=== PATIENT | male | born 1955 | race Caucasian/White ===

== ENCOUNTER 2019-05-10 19:19 | Emergency (ER) | payer BC ==
[2019-05-10] MEDS ORDERED: Albuterol/Ipratropium 3.0-0.5 MG/3 ML Neb Soln NEB ONE (19:43)
--- NOTE | 2019-05-10 19:50 | EDM.PDOC ---
ED HPI GENERAL MEDICAL PROBLEM - General Chief Complaint: Respiratory Problem Stated Complaint: LOW OXYGEN LEVEL Time Seen by Provider: 05/10/19 19:24 Source of Information: Reports: Patient History Limitations: Reports: No Limitations - History of Present Illness INITIAL COMMENTS - FREE TEXT/NARRATIVE: Mr. Marshall is a very pleasant 64-year-old man, working in this area from [place] , with a past medical history significant for coronary artery disease, status post 3 stents over 2 coronary angiograms, along with treated hypertension and dyslipidemia, who states that he developed a cough productive of greenish sputum along with dyspnea both at rest and with exertion, more than a week ago. No recent fever. No recent wheezing. No recent chest pain or palpitations. No prior similar symptoms. The patient went to the walk-in clinic, expecting to get an antibiotic, but his SpO2 was found to be depressed at 75% on room air. He was placed on 3 L of oxygen, which raised his SpO2 to 95%, then brought to the ED. Here in the ED, the patient is found to be mildly hypertensive, but not tachycardic or tachypneic, with an oxygen saturation of 72% on room air with good correlation plethysmograph. He was placed on 2 L of O2 per nasal cannula, raising his SpO2 to around 90%. The patient denies recent chills, nausea, vomiting, constipation, diarrhea, abdominal pain, urinary symptoms, recent weight gain or weight loss, recent bloody bowel movements or black bowel movements, recent joint aches, headaches, or rashes. He denies any recent lower extremity edema or injury. The patient's PCP is in [place]. He did not receive an influenza vaccine this season, and declined an offer to receive one here today. Generalized Pain Score (Numeric/FACES): 4 - Related Data Allergies Allergy/AdvReac Type Severity Reaction Status Date / Time No Known Allergies Allergy Verified 05/10/19 19:38 Home Meds: Home Meds Aspirin [Ecotrin EC] 81 mg PO DAILY 05/10/19 [History] Carvedilol [Coreg] 12.5 mg PO DAILY 05/10/19 [History] Sacubitril/Valsartan [Entresto 24 mg-26 mg Tablet] 1 tab PO ASDIRECTED 05/10/19 [History] atorvaSTATin Calcium [Lipitor] 20 mg PO DAILY 05/10/19 [History] Past Medical History Cardiovascular History: Reports: CAD, High Cholesterol, Hypertension Musculoskeletal History: Reports: Fracture (left ankle) Endocrine/Metabolic History: Reports: Obesity/BMI 30+ - Past Surgical History Cardiovascular Surgical History: Reports: Coronary Artery Stent (x 3), Other ( See Below) (coronary angiogram x 2) Musculoskeletal Surgical History: Reports: ORIF (left ankle, as a child) Social & Family History - Tobacco Use Smoking Status *Q: Current Every Day Smoker Years of Tobacco use: 46 Packs/Tins Daily: 1.5 Packs/Tins Daily Comment: Down from 2.5 ppd - Caffeine Use Caffeine Use: Reports: Coffee - Alcohol Use Alcohol Use History: Yes Alcohol Use Frequency: Socially - Recreational Drug Use Recreational Drug Use: No - Living Situation & Occupation Living situation: Reports: , with Spouse, with Family (Daughter) Occupation: Employed ([employer]) ED ROS GENERAL - Review of Systems Review Of Systems: Comprehensive ROS is negative, except as noted in HPI. ED EXAM, GENERAL - Physical Exam Exam: See Below Exam Limited By: No Limitations General Appearance: Alert, WD/WN, No Apparent Distress (looks perfectly comfortable) Eye Exam: Bilateral Eye: EOMI, Normal Inspection Ears: Normal External Exam, Hearing Grossly Normal Nose: Normal Inspection Throat/Mouth: Normal Inspection, Normal Lips, Normal Voice, No Airway Compromise Head: Atraumatic, Normocephalic Neck: Normal Inspection, Full Range of Motion Respiratory/Chest: No Respiratory Distress, No Accessory Muscle Use, Decreased Breath Sounds (throughout), Wheezing (fine, expiratory, throughout), Prolonged Expiration. No: Crackles, Rhonchi, Stridor Cardiovascular: Normal Peripheral Pulses, Regular Rate, Rhythm, No Gallop, No JVD, No Murmur, No Rub Peripheral Pulses: 4+: Radial (L), Radial (R) GI/Abdominal: Normal Bowel Sounds, Soft, Non-Tender, No Organomegaly, No Distention, No Abnormal Bruit, No Mass (Male) Exam: Deferred Rectal (Males) Exam: Deferred Back Exam: Normal Inspection, Full Range of Motion, NT Extremities: Normal Inspection, Normal Range of Motion, Normal Capillary Refill , Other (Trace pretibial pitting edema to the left leg, 1+ (or so) pretibial pitting edema to the right leg) Neurological: Alert, Oriented, Normal Cognition, No Motor/Sensory Deficits Psychiatric: Normal Affect Skin Exam: Warm, Dry, Intact, Normal Color, No Rash EKG INTERPRETATION EKG Date: 05/10/19 Time: 20:06 Rhythm: NSR Rate (Beats/Min): 80 [place]: Normal P-Wave: Enlarged (LAE) QRS: Normal ST-T: Elevated (Up to 1.5 mm concave in V1 to V3 or V4 with ST depressions in inferior leads. No T-wave inversions.) QT: Normal Comparison: NA - No Prior EKG Course - Vital Signs Last Recorded V/S: Last Vital Signs Temp 36.9 C 05/10/19 19:28 Pulse 89 05/10/19 19:28 Resp 13 05/10/19 19:28 BP 160/96 H 05/10/19 19:28 Pulse Ox 86 L 05/10/19 19:58 - Orders/Labs/Meds Orders: Active Orders 24 hr Category Date Time Status EKG Documentation Completion [RC] STAT Care 05/10/19 19:40 Active RT Aerosol Therapy [RC] ASDIRECTED Care 05/10/19 19:43 Active CULTURE BLOOD [BC] Stat Lab 05/10/19 20:05 Received CULTURE BLOOD [BC] Stat Lab 05/10/19 20:17 Received Heparin Sodium/D5W [Heparin 25,000 Units in D5W 500 ML] Med 05/10/19 21:30 Ordered 25,000 units in 500 ml IV TITRATE Blood Culture x2 Reflex Set [OM.PC] Stat Oth 05/10/19 19:40 Ordered Medication Orders Heparin Sodium/Dextrose (Heparin 25,000 Units In D5w 500 Ml) 25,000 units in 500 mls @ 19.915 mls/hr IV TITRATE ROLANDO; Protocol Last Admin: 05/10/19 21:39 Dose: 9.8 units/kg/hr, 19.915 mls/hr Labs: Laboratory Tests 05/10/19 05/10/19 05/10/19 Range/Units 19:45 20:05 20:05 WBC 13.52 H (4.23-9.07) K/mm3 RBC 5.88 (4.63-6.08) M/mm3 Hgb 17.3 (13.7-17.5) gm/dl Hct 54.2 H (40.1-51.0) % MCV 92.2 (79.0-92.2) fl MCH 29.4 (25.7-32.2) pg MCHC 31.9 L (32.2-35.5) g/dl RDW Std Deviation 54.7 H (35.1-43.9) fL Plt Count 177 (163-337) K/mm3 MPV 10.9 (9.4-12.3) fl Neutrophils % (Manual) 68 H (40-60) % Band Neutrophils % 2 (0-10) % Lymphocytes % (Manual) 18 L (20-40) % Atypical Lymphs % 1 % Monocytes % (Manual) 9 (2-10) % Eosinophils % (Manual) 0 L (0.8-7.0) % Basophils % (Manual) 2 H (0.2-1.2) Platelet Estimate Adequate RBC Morph Comment Normal PT 12.0 (9.7-12.0) SECONDS INR 1.11 APTT 31 (22-31) SECONDS D-Dimer, Quantitative 0.34 (0.19-0.50) mg/L Puncture Site Rt radial ABG pH 7.33 L (7.35-7.45) ABG pCO2 58.6 H (35.0-45.0) mmHg ABG pO2 40.0 L (80.0-100.0) mmHg ABG HCO3 29.8 H (22.0-26.0) meq/L ABG O2 Saturation 67.0 L (96.0-97.0) % ABG Base Excess 2.3 H (-2-2.0) Domo Test Positive A-a Gradient 37 mmHg O2 Delivery Device Room air FiO2 21.00 (21.00-100.00) % Sodium (136-145) mEq/L Potassium (3.5-5.1) mEq/L Chloride (98-107) mEq/L Carbon Dioxide (21-32) mEq/L Anion Gap (5-15) BUN (7-18) mg/dL Creatinine (0.7-1.3) mg/dL Est Cr Clr Drug Dosing mL/min Estimated GFR (MDRD) (>60) mL/min BUN/Creatinine Ratio (14-18) Glucose (80-115) mg/dL Lactic Acid (0.4-2.0) mmol/L Calcium (8.5-10.1) mg/dL Total Bilirubin (0.2-1.0) mg/dL AST (15-37) U/L ALT (16-63) U/L Alkaline Phosphatase (46-116) U/L Troponin I (0.00-0.056) ng/mL NT-Pro-B Natriuret Pep (0-125) pg/mL Total Protein (6.4-8.2) g/dl Albumin (3.4-5.0) g/dl Globulin gm/dL Albumin/Globulin Ratio (1-2) 05/10/19 05/10/19 05/10/19 Range/Units 20:05 20:05 20:05 WBC (4.23-9.07) K/mm3 RBC (4.63-6.08) M/mm3 Hgb (13.7-17.5) gm/dl Hct (40.1-51.0) % MCV (79.0-92.2) fl MCH (25.7-32.2) pg MCHC (32.2-35.5) g/dl RDW Std Deviation (35.1-43.9) fL Plt Count (163-337) K/mm3 MPV (9.4-12.3) fl Neutrophils % (Manual) (40-60) % Band Neutrophils % (0-10) % Lymphocytes % (Manual) (20-40) % Atypical Lymphs % % Monocytes % (Manual) (2-10) % Eosinophils % (Manual) (0.8-7.0) % Basophils % (Manual) (0.2-1.2) Platelet Estimate RBC Morph Comment PT (9.7-12.0) SECONDS INR APTT (22-31) SECONDS D-Dimer, Quantitative (0.19-0.50) mg/L Puncture Site ABG pH (7.35-7.45) ABG pCO2 (35.0-45.0) mmHg ABG pO2 (80.0-100.0) mmHg ABG HCO3 (22.0-26.0) meq/L ABG O2 Saturation (96.0-97.0) % ABG Base Excess (-2-2.0) Domo Test A-a Gradient mmHg O2 Delivery Device FiO2 (21.00-100.00) % Sodium 140 (136-145) mEq/L Potassium 4.1 (3.5-5.1) mEq/L Chloride 102 (98-107) mEq/L Carbon Dioxide 30 (21-32) mEq/L Anion Gap 12.1 (5-15) BUN 26 H (7-18) mg/dL Creatinine 1.0 (0.7-1.3) mg/dL Est Cr Clr Drug Dosing 81.91 mL/min Estimated GFR (MDRD) > 60 (>60) mL/min BUN/Creatinine Ratio 26.0 H (14-18) Glucose 111 (80-115) mg/dL Lactic Acid 1.2 (0.4-2.0) mmol/L Calcium 8.8 (8.5-10.1) mg/dL Total Bilirubin 1.0 (0.2-1.0) mg/dL AST 37 (15-37) U/L ALT 29 (16-63) U/L Alkaline Phosphatase 82 (46-116) U/L Troponin I 1.620 H* (0.00-0.056) ng/mL NT-Pro-B Natriuret Pep 3038 H (0-125) pg/mL Total Protein 7.7 (6.4-8.2) g/dl Albumin 3.7 (3.4-5.0) g/dl Globulin 4.0 gm/dL Albumin/Globulin Ratio 0.9 L (1-2) Meds: Medications Generic Name Dose Route Start Last Admin Trade Name Freq PRN Reason Stop Dose Admin Heparin Sodium/Dextrose 25,000 units in 500 mls @ 19.915 mls/hr 05/10/19 21: 30 05/10/19 21:39 Heparin 25,000 Units In D5w 500 Ml IV 9.8 units/kg/hr TITRATE ROLANDO 19.915 mls/hr Administration Protocol 9.8 UNITS/KG/HR Discontinued Medications Generic Name Dose Route Start Last Admin Trade Name Freq PRN Reason Stop Dose Admin Albuterol/Ipratropium 3 ml 05/10/19 19:43 05/10/19 19:58 Duoneb 3.0-0.5 Mg/3 Ml NEB 05/10/19 19:44 3 ml ONETIME ONE Administration Aspirin 324 mg 05/10/19 21:29 05/10/19 21:38 Aspirin PO 05/10/19 21:30 324 mg ONETIME STA Administration Furosemide 40 mg 05/10/19 21:45 Lasix IVPUSH 05/10/19 21:46 NOW ONE Heparin Sodium (Porcine) 4,000 units 05/10/19 21:29 05/10/19 21:38 Heparin Sodium IVPUSH 05/10/19 21:30 4,000 units .BOLUS STA Administration Metoprolol Tartrate 5 mg 05/10/19 21:29 05/10/19 21:45 Lopressor IVPUSH 05/10/19 21:30 Not Given ONETIME ONE - Re-Assessments/Exams Free Text/Narrative Re-Assessment/Exam: 05/10/19 19:45 As above, the patient was brought over from the walk-in clinic because of a low oxygen saturation. Here in the ED, after adjusting his finger pulse oximeter to get a good correlating waveform, I find his SpO2 to be 72% on room air. On auscultation of his lungs, I hear no crackles, however, he does have expiratory wheezing with a prolonged expiratory phase, suggestive of chronic bronchitis. Additionally on exam, the patient has trace left lower extremity edema, but a good 1+ or so pitting edema to his right lower extremity. Interestingly, he did not cough once in my presence. He is afebrile. He has a long smoking history. While it could fitter and turner that he has pneumonia, I am more concerned about a PE or even a malignancy. I have ordered a work-up that includes blood work, an ABG, 2 sets of blood cultures, a chest x-ray and an ECG. In the meantime, the patient will be given a DuoNeb. 05/10/19 20:31 2-view chest radiograph is read by Dr. Nation as: 1. Heart size at the upper limits of normal. 2. Nothing acute is otherwise seen on 2 view chest x-ray. 05/10/19 20:44 The patient's ECG is concerning in that it demonstrates up to 1.[address] elevations in V1 through or V4, with ST depressions in the inferior leads. Admittedly, these are concave ST elevations with no T wave inversions. Nevertheless, I want to discuss this with a Element [facility]er. Case discussed with Dianna at [facility] at 20:34. Case then discussed with Dr. Good, Element Burner at [facility], at 28 :39. I sent him an image of the ECG. He feels that the changes are more consistent with RV strain secondary to a pulmonary embolus as opposed to a STEMI. At present, we only have the ABG back, and none of the remainder of the blood work. The ABG represents a chronic/compensated respiratory acidosis. 05/10/19 21:31 The patient CBC is remarkable for a WBC count elevated at 13.52, but with only 2 % bandemia. His Hct is mildly elevated at 54.2, but with a Hgb normal at 17.3. The remainder of his CBC is unremarkable. His CMP is remarkable for a BUN mildly elevated at 26, but with a Cr normal at 1.0, with the remainder of his CMP being unremarkable. His troponin is elevated at 1.620. His BNP is elevated at 3038. His lactic acid is within normal limits at 1.2. His D-dimer is within normal limits at 0.34. His coags are within normal limits. A normal D-dimer excludes a pulmonary embolus, but his elevated troponin confirms cardiac injury. I have therefore ordered aspirin, Lopressor, and heparin by bolus and drip. 05/10/19 21:[address] Good at 21:34. He still does not feel that the elevated troponin represents a STEMI, rather, he feels that the patient is suffering from heart failure, possibly due to a recent [place]. As such, he advised against Lopressor, particularly because the patient is already on carvedilol. He was okay with the aspirin and heparin. Because he does not feel this is a STEMI, he did not accept transfer, rather, the patient should be transferred to the Hospitalist. 05/10/19 21:49. Discussed with Dianna at [facility] at 21:44 Case then discussed with Dr. Godinez, Hospitalist at [facility], at 21: 45. He accepted the patient for admission to their facility. The patient will be transported by ground ambulance. The portable chest x-ray image was pushed to [facility]'s at 21:45. The patient will be given furosemide 40 mg IVP. Departure - Departure Time of Disposition: 21:50 Disposition: DC/Tfer to Acute Hospital 02 Condition: Good Clinical Impression: Cough, Dyspnea, Elevated troponin, Elevated brain natriuretic peptide (BNP) level - Discharge Information *PRESCRIPTION DRUG MONITORING PROGRAM REVIEWED*: Not Applicable *COPY OF PRESCRIPTION DRUG MONITORING REPORT IN PATIENT ARIANNA: Not Applicable Referrals: PCP,Not In Area [Primary Care Provider] - Forms: ED Department Discharge Sepsis Event Note - Evaluation Sepsis Screening Result: No Definite Risk - Focused Exam Vital Signs: Vital Signs Temp Pulse Resp BP Pulse Ox Pulse Ox 05/10/19 19:58 86 L 05/10/19 19:28 36.9 C 89 13 160/96 H 69 L Date Exam was Performed: 05/10/19 Time Exam was Performed: 22:00 - My Orders Last 24 Hours: My Active Orders 05/10/19 19:40 EKG Documentation Completion [RC] STAT Blood Culture x2 Reflex Set [OM.PC] Stat 05/10/19 19:43 RT Aerosol Therapy [RC] ASDIRECTED 05/10/19 20:05 CULTURE BLOOD [BC] Stat 05/10/19 20:17 CULTURE BLOOD [BC] Stat 05/10/19 21:30 Heparin Sodium/D5W [Heparin 25,000 Units in D5W 500 ML] 25,000 units in 500 ml IV TITRATE - Assessment/Plan Last 24 Hours: My Active Orders 05/10/19 19:40 EKG Documentation Completion [RC] STAT Blood Culture x2 Reflex Set [OM.PC] Stat 05/10/19 19:43 RT Aerosol Therapy [RC] ASDIRECTED 05/10/19 20:05 CULTURE BLOOD [BC] Stat 05/10/19 20:17 CULTURE BLOOD [BC] Stat 05/10/19 21:30 Heparin Sodium/D5W [Heparin 25,000 Units in D5W 500 ML] 25,000 units in 500 ml IV TITRATE
--- NOTE | 2019-05-10 20:14 | CR ---
Chest: 2 views of the chest were obtained. Comparison: No prior chest imaging. Heart is at the upper limits normal. Lungs are clear with no acute parenchymal change. Bony structures show slight disc space narrowing and mild endplate spurring within the spine. Nothing acute is seen. Impression: 1. Heart size at the upper limits of normal. 2. Nothing acute is otherwise seen on 2 view chest x-ray. Diagnostic code #2 Study was dictated in [place] Standard Time
[2019-05-10] MEDS ORDERED: Heparin Sodium 5,000 Units/ML Vial IVPUSH STA (21:29)
[2019-05-10] MEDS ORDERED: Aspirin 81 MG Tab.Chew PO STA (21:29)
[2019-05-10] MEDS ORDERED: Metoprolol Tartrate 5 MG/5 ML SDV IVPUSH ONE (21:29)
[2019-05-10] MEDS ORDERED: Heparin Sodium/D5W 25,000 UNITS/500 ML BAG IV SCH (21:30)
[2019-05-10] MEDS ORDERED: Furosemide 40 MG/4 ML VIAL IVPUSH ONE (21:45)
== END 2019-05-10 22:23 ==
LOC: JD.ED 19:19
DX: R06.00 Dyspnea, unspecified (principal); R05 Cough; R79.89 Other specified abnormal findings of blood chemistry; I25.10 Atherosclerotic heart disease of native coronary artery without angina pectoris; I10 Essential (primary) hypertension; E78.00 Pure hypercholesterolemia, unspecified; E78.5 Hyperlipidemia, unspecified; F17.210 Nicotine dependence, cigarettes, uncomplicated; E66.9 Obesity, unspecified; Z68.30 Body mass index [BMI] 30.0-30.9, adult; Z95.5 Presence of coronary angioplasty implant and graft; Z79.82 Long term (current) use of aspirin; Z79.899 Other long term (current) drug therapy
CPT/HCPCS: 36415; 36600; 71046; 80053; 82803; 83605; 83880; 84484; 85007; 85027; 85379; 85610; 85730; 87040; 93005; 94640; 96365; 96375; 96376; 99285; A9270; J1644; J1940; 93010; J7620-GY